=== PATIENT | male | born 1950 | race Caucasian/White ===

== ENCOUNTER 2017-11-08 05:55 | Day surgery (SDC) | payer MEDICARE ==
[~2017-11-08] VITALS: Ht 177.8 cm; Wt 88.5 kg
[~2017-11-08 05:55] MED LIST: ACETAMIN325 MG OR; ACETAMIN500 M1 OR; AMLODIPINE5 MG PO; ASPIRIN CHEWABL81 MG OR; BABY ASPIRIN81 MG OR; CIPRO250 MG PO; COUMADIN2.5 MG OR; COUMADIN7.5 MG PO; LISINOPRIL20 M1 OR; METOPROLOL50 MG OR; MILK OF MAG2 OR; PROBIATA OR; SLOW FE160 MG OR
[2017-11-08 07:50] VITALS: BP 96/59
== END 2017-11-08 08:05 | disposition home or self-care (01) ==
LOC: ENDO 05:55
PROVIDERS: ATTEND Surgery
PROC: 0DBL8ZX Excision of Transverse Colon, Via Natural or Artificial Opening Endoscopic, Diagnostic (ICD-10-PCS; principal; 2017-11-08)
DX: Z12.11 Encounter for screening for malignant neoplasm of colon (principal); D12.3 Benign neoplasm of transverse colon; K64.8 Other hemorrhoids; I25.10 Atherosclerotic heart disease of native coronary artery without angina pectoris; I10 Essential (primary) hypertension; G47.33 Obstructive sleep apnea (adult) (pediatric); D75.1 Secondary polycythemia

== ENCOUNTER 2021-08-04 06:30 | Emergency (ER) | payer MEDICARE ==
[2021-08-04] VITALS (12 sets, daily range): BP systolic 132–154; BP diastolic 67–94
[~2021-08-04] VITALS: Ht 177.8 cm; Wt 85.0 kg
[2021-08-04] MEDS ORDERED: CORDARONE/200 MG/TAB PO (06:58)
[2021-08-04] MEDS ORDERED: ELIQUIS5 MG PO (07:00)
[2021-08-04] MEDS ORDERED: MAG-AL PLU1 PO (07:01)
[2021-08-04] MEDS ORDERED: FLUTICASONE (07:02)
[2021-08-04] MEDS ORDERED: PROTONIX40 MG PO (07:02)
[2021-08-04 07:09] LABS: IMMATURE GRANULOCYTES 0.5 % (0.0-5.0); MEAN CELL VOLUME 99.2 fL CALC (80.0-100.0); MEAN CORPUSCULAR HGB 32.2 pG CALC (26.0-32.0); MEAN CORPUSCULAR HGB CONC 32.4 g/dL CAL (32.0-36.0); NEUT# 11.26 thou/uL (1.82-7.42); RED BLOOD COUNT 4.82 mill/uL (4.70-6.10); RED CELL DISTRI WIDTH 13.3 % (11.5-15.5)
[2021-08-04 07:10] LABS: HEMATOCRIT 47.8 % (39.0-50.0); HEMOGLOBIN 15.5 g/dl (14.0-18.0)
[2021-08-04 07:26] LABS: ALBUMIN 4.1 g/dL (3.2-5.0); ALKALINE PHOSPHATASE 119 u/l (38-126); ANION GAP 14 (6-22 (CALC)); BUN 16 mg/dL (8-23); BUN/CREATININE RATIO 18 (12-20 (CALC)); CARBON DIOXIDE 26 mmol/l (22-30); CHLORIDE 99 mmol/l (95-108); CREATININE 0.9 mg/dL (0.7-1.3); GFR > 60 ML/MIN (>=60 (CALC)); GFR FOR AFR.AMER. > 60 ML/MIN (>=60 (CALC)); LIPASE 92 u/l (23-300); POTASSIUM 4.3 mmol/l (3.5-5.1); SGOT/AST 21 u/l (19-48); SODIUM 134 mmol/l (137-146); TOTAL PROTEIN 7.6 g/dL (6.3-8.2)
[2021-08-04 07:28] LABS: BILIRUBIN, TOTAL 0.8 mg/dL (0.0-1.4)
[2021-08-04 07:29] LABS: ACT PARTIAL THROMBO TIME 33.5 SECONDS (20.0-32.5); PROTHROMBIN TIME 10.1 SECONDS (9.0-12.5)
== END 2021-08-04 09:09 | disposition short-term general hospital (02) ==
LOC: ED 06:30
DX: R06.1 Stridor (principal); I10 Essential (primary) hypertension; Z86.711 Personal history of pulmonary embolism; Z87.898 Personal history of other specified conditions; Z20.822 Contact with and (suspected) exposure to COVID-19